=== PATIENT | female | born 1985 | race Caucasian/White ===

== ENCOUNTER 2020-05-07 12:52 | Emergency (ER) | payer OTHER ==
[~2020-05-07] VITALS: Ht 175.3 cm; Wt 85.5 kg
[2020-05-07] MEDS ORDERED: KETOROLAC 60 MG/2 ML ONE (13:23)
[2020-05-07] MEDS ORDERED: KETOROLAC 30 MG/1 ML IM ONE (13:30)
[2020-05-07 14:27] LABS: BASOPHILS # (AUTO) 0.02 x10^3/uL (0-0.1); BASOPHILS % (AUTO) 0 % (0-1); EOSINOPHILS # (AUTO) 0.11 x10^3/uL (0-0.4); EOSINOPHILS % (AUTO) 1 % (1-7); LYMPHOCYTES # (AUTO) 1.44 x10^3/uL (1-3.4); LYMPHOCYTES % (AUTO) 15 % (22-44); MD NO; MEAN CORPUSCULAR HEMOGLOBIN 29.3 pg (27.0-34.8); MEAN CORPUSCULAR HGB CONC 32.8 g/dL (32.4-35.8); MEAN CORPUSCULAR VOLUME 89.3 fL (80-100); MONOCYTES # (AUTO) 0.84 x10^3/uL (0.2-0.8); MONOCYTES % (AUTO) 9 % (2-9); NEUTROPHILS # (AUTO) 6.95 x10^3/uL (1.8-6.8); NEUTROPHILS % (AUTO) 74 % (42-75); PLATELET COUNT 365 x10^3/uL (130-400); RED BLOOD COUNT 4.36 x10^6/uL (3.82-5.3); RED CELL DISTRIBUTION WIDTH 13.5 % (9.6-15.2)
[2020-05-07 14:36] LABS: MICROSCOPIC INDICATED
[2020-05-07 14:37] LABS: ALBUMIN 2.6 g/dL (3.4-5.0); ANION GAP 8 mmol/L (5-15); CHLORIDE 102 mmol/L (98-107); CREATININE 0.65 mg/dL (0.55-1.02)
--- NOTE | 2020-05-07 15:02 | NUR ---
ALL RESULTS ARE BACK AT THIS TIME. CHART UP FOR RECHECK.
[2020-05-07] MEDS ORDERED: SODIUM CHLORIDE FLUSH 10ML SYR IVF ONE (15:30)
[2020-05-07 15:44] VITALS: BP 112/70
--- NOTE | 2020-05-07 15:44 | NUR ---
NEW ORDER FOR CT. PT WANTS TO SPEAK WITH MD PRIOR TO TEST AND PIV PLACEMENT.
--- NOTE | 2020-05-07 16:00 | NUR ---
UPDATED PT ON POC. PT AGREES TO CTA. PIV PLACED BY TASK RN.
--- NOTE | 2020-05-07 16:24 | NUR ---
PT BACK FROM CTA
--- NOTE | 2020-05-07 16:35 | NUR ---
ALL RESULTS ARE BACK AT THIS TIME. CHART UP FOR RECHECK.
[2020-05-07] MEDS ORDERED: OMNIPAQUE 350 MG/ML, 100ML BOTTLE ONE (17:00)
== END 2020-05-07 17:14 | disposition home or self-care (01) ==
LOC: EDBD 12:52 → ED 14:25
DX: R07.89 Other chest pain (principal); N30.00 Acute cystitis without hematuria; N83.291 Other ovarian cyst, right side; J15.9 Unspecified bacterial pneumonia; R00.0 Tachycardia, unspecified; R50.9 Fever, unspecified; F17.210 Nicotine dependence, cigarettes, uncomplicated
CPT/HCPCS: 36415; 71045; 71275; 76830; 80048; 81001; 82040; 84703; 85025; 85379; 87086; 93005; 96372; 99285; 99406; J1885; Q9967